=== PATIENT | female | born 1970 | race Two or more races ===

== ENCOUNTER 2025-02-25 09:15 | Day surgery (SDC) | payer MEDICARE, MEDICAID, SELFPAY ==
--- NOTE | 2025-02-24 11:05 | EKG_ITS ---
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
[2025-02-24 11:15] VITALS: BMI 31.5
[2025-02-24 13:16] LABS: Basophils # (Auto) 0.1 Thou/mm3 (0.0-0.2); Basophils % (Auto) 1 % (0-2.5); Eosinophils # (Auto) 0.3 Thou/mm3 (0.0-0.5); Eosinophils % (Auto) 5 % (0-10); Hematocrit 35.7 % (36.0-46.0); Hemoglobin 12.0 g/dL (12.0-16.0); Immature Granulocytes Auto 0.01 Thou/mm3 (0.00-0.00); Lymphocytes # (Auto) 2.4 Thou/mm3 (1.0-4.8); Lymphocytes % (Auto) 35 % (10-50); Mean Corpuscular HGB Conc 33.6 g/dl (31.0-37.0); Mean Corpuscular Hemoglobin 28.6 pg (25.0-35.0); Mean Corpuscular Volume 85 fL (80-100); Monocytes # (Auto) 0.5 Thou/mm3 (0.0-0.8); Monocytes % (Auto) 7 % (0-12); Neutrophils # (Auto) 3.6 Thou/mm3 (1.8-7.7); Neutrophils % (Auto) 52 % (37-80); Nucleated Red Blood Cell # 0.00 Thou/mm3 (0.00-0.00); Nucleated Red Blood Cell % 0 /100 WBC (0); Platelet Count 323 Thou/mm3 (140-440); RDW Standard Deviation 43.7 fL (36.4-46.3); Red Blood Count 4.20 Miln/mm3 (4.00-5.20); White Blood Count 6.9 Thou/mm3 (3.6-11.0)
[2025-02-24 13:21] LABS: INR 0.9 (0.9-1.3); Partial Thromboplastin Time 24.8 Seconds (22.0-36.0); Prothrombin Time 10.4 Seconds (9.0-12.2)
[2025-02-24 13:37] LABS: Alanine Aminotransferase 9 U/L (10-49); Albumin, Serum 4.5 gm/dL (3.5-5.0); Albumin/Globulin Ratio 1.8 (1.2-2.2); Alkaline Phosphatase 71 U/L (46-116); Anion Gap 7 (7-16); Aspartate Amino Transferase 14 U/L (0-34); BUN/Creatinine Ratio 14 Ratio (12-20); Bilirubin,Total 0.4 mg/dL (0.3-1.2); Blood Urea Nitrogen 13 mg/dL (9-23); Calcium 10.0 mg/dL (8.3-10.6); Calcium (Corrected) 10.0 mg/dL (8.5-10.1); Carbon Dioxide 26.7 mMol/L (20.0-31.0); Chloride 110 mMol/L (98-107); Creatinine (Component) 0.9 mg/dL (0.6-1.3); Estimated Creatinine Clearance 80.9 mL/min (>60); Globulin 2.5 gm/dL (2.3-3.5); Glucose 88 mg/dL (74-106); Osmolality,Calculated 285 (275-295); Potassium 4.6 mMol/L (3.4-5.1); Sodium 144 mMol/L (136-145); Total Protein 7.0 gm/dL (5.7-8.2); eGFR > 60 See Note
--- NOTE | 2025-02-24 14:20 | ESHP_ITS ---
RE: JL SINGH : 1970 DATE OF ADMISSION: 02/25/2025 HISTORY OF PRESENTING COMPLAINT: The patient has pain, swelling, clicking, and locking of the right knee joint. Pain is going on for a long period of time. It is interfering with her routine daily activities and activities of daily living. Conservative treatment did not help her. It is affecting her sleep and is unable to walk more than 1 or 2 block. The MRI scan was obtained, which revealed torn meniscus. PAST MEDICAL HISTORY: No history of diabetes mellitus, high blood pressure, asthma, seizure, chest pain, myocardial infarction, or bleeding disorder. PAST SURGICAL HISTORY: Nil. DRUG HISTORY: The patient is taking; 1. Gabapentin. 2. Baclofen. 3. Sometimes she takes Lidocaine. 4. Besides that the patient takes lisinopril for high blood pressure. ALLERGIES: NIL KNOWN. FAMILY HISTORY AND SOCIAL HISTORY: The patient denies smoking or drinking. PHYSICAL EXAMINATION: GENERAL: Normal built lady. VITAL SIGNS: Pulse 66 per minute. Blood pressure is 128/82. Her BMI is 30.40. NECK: Soft. Supple. No mass felt. Trachea is centrally placed. CARDIOVASCULAR SYSTEM: First and second heart sounds normal. No murmurs heard. RESPIRATORY SYSTEM: Bilateral vesicular breath sounds. CHEST: Clear. ABDOMEN: Soft. No masses felt. Bowel sounds present. BREASTS: Not indicated in this case. RECTAL: The patient is advised to see the family physician for rectal examination. EXTREMITIES: Right knee examination revealed mild swelling. There is 2+ tenderness along the joint line. Active range of motion 0 to 120 degrees of flexion. Patellofemoral crepitus present. Anthony's test is positive. Drawer test and Grabiel tests are negative. The patient walks with limp. 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 There is synovitis with increased joint fluid. ASSESSMENT AND PLAN: Since the patient has meniscal tear and the patient is symptomatic, therefore, right knee arthroscopy was discussed and advised. Detailed discussion took place. Risks with anesthesia were explained and that includes, but not limited to reaction to anesthetic agents, cardiac arrest or rarely it might be fatal. Risks of operation includes infection and if that happens, the patient may need further surgical procedure. Other risks include delayed healing, wound dehiscence, etc. No guarantee is given regarding the outcome of the procedure and/or relief of symptoms. Detailed discussion took place. Indeed, if one finds grade 3 and/or grade 4 chondromalacia, there is a possibility that the patient may need another knee replacement if the pain persists and pain is significant. All lab work is done. The patient is cleared for surgical procedure as well. Surgery is booked for 02/25/2025. DT: 13:46:22 TT: 14:18:00 Ref: [id number] - TID: [id number]
[2025-02-25] VITALS (7 sets, daily range): BP systolic 92–127; BP diastolic 58–82; PULSE 61–93; RESP 12–20; TEMP 36.1; O2SAT 97–100; BMI 31.1
[2025-02-25] MEDS: RINGERS LACTATED 1000 ML 1,000 ML 20 ML IV (10:00)
--- NOTE | 2025-02-25 12:34 | SUR.PHASEI ---
Pt. arrived to recovery via gurney, eyes closed, responds to verbal commands, VSS, lung sounds clear, equal expansion kalia., pt. receiving 6 liters 02 via oxymask, dressing to right knee adaptic soaked in betadine, fluffs, abd. pad, bias roll and silk tape, no active bleeding or redness noted, pedal pulses present kalia., cap refill to great toe on right foot <3 seconds, report received from Alicia VELASQUEZ and Iftikhar ROUSE.
--- NOTE | 2025-02-25 12:43 | PD.SUROPNT ---
Date of Procedure 02/25/25 Pre Op Diagnosis 1. 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 Partial medial meniscectomy 2 partial lateral meniscectomy 3 chondroplasty 4. Partial synovectomy including excision plica Findings Refer dictation Procedure Description The patient was given general endotracheal anesthesia. Once satisfactory anesthesia was achieved, tourniquet was placed on right upper thigh. Following that the part was thoroughly prepped and draped. After using Esmarch the tourniquet pressure was raised to 350 mmHg. A skin incision was made proximal to lateral tibial plateau and arthroscope was introduced in the usual fashion. Another a skin incision was made in suprapatellar pouch area and outlet was established. The findings were noted as below. In suprapatellar pouch area significant synovial tissue inflammation was present. Medial plica was present as well. 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 The anterior femoral condyle showed grade 4 chondromalacia. Soft tissue impingement was present. The patellar tracking was checked and found to be good. The medial compartment showed grade 3 chondromalacia for medial tibial plateau and medial femoral condyle. The medial meniscus showed degeneration and tear of the anterior horn. Another skin incision was made proximal to medial tibial plateau and a probe was introduced and findings were confirmed. The anterior cruciate ligament was intact. The anterior drawer test was performed and found to be good. The lateral compartment showed grade III chondromalacia lateral femoral condyle and tibial plateau. Lateral meniscus showed degeneration of the body and anterior horn. A shaver was introduced and shaving of the anterior horn of medial meniscus was performed. Soft tissue impingement was shaved off. Chondroplasty of the medial femoral condyle and medial tibial plateau was performed. The shaving of the body and anterior horn of lateral meniscus was done. Chondroplasty of the lateral tibial plateau and femoral condyle was done The chondroplasty of the patella and and anterior femoral condyle was performed. The soft tissue impingement was shaved off. A partial synovectomy including excision of plica was performed. Copious amount of irrigation was used to irrigate the knee joint. All the debris were removed. 3-0 Prolene was used to close the wound. About 20 mL of quarter percent Marcaine along with 10 mg of Duramorph was injected. Patient tolerated procedure well. Estimated blood loss was about 5 mL. Prognosis in this case is in the patella, anterior femoral condyle and also in the lateral and medial compartment there is a possibility patient may continue having bit guarded. Because of significant chondromalacia short and or long-term pain. If the pain is severe patient may be a candidate for knee replacement patient is fully aware of that. Patient was taken to the recovery room in good condition. Anesthesia GETA Pathology / specimen None Estimated Blood Loss 2 Surgeon Earnest Townsend MD Surgical Staff Operation Date: 02/25/25 11:15 Case Staff [employer] TE[employer]ICAL OFFICER: Loi Larry
[2025-02-25] MEDS: fentaNYL CIT INJ 50 mCg/ML AMP 2ML 25 MCG IVP ×2 (13:02→13:17)
--- NOTE | 2025-02-25 13:40 | SUR.PHASEII ---
pt awake and alert, breathing unlabored on room air. v/s stable. pt dressing to right lower extremity cdi. pt able to transfer to wheelchair. d/c instructions given with friend Parvin Sams in room, all questions answered. pt d/c via wheelchair with all belongings.
== END 2025-02-25 13:40 | disposition home or self-care (01) ==
PROVIDERS: Anesthesiology; PCP Family Medicine; Referring Provider Orthopaedic Surgery; Visit Provider Orthopaedic Surgery
PROC: (CPT 29870; principal; 2025-02-25 11:00)
DX: S83.241A Other tear of medial meniscus, current injury, right knee, initial encounter (principal); S83.289A Other tear of lateral meniscus, current injury, unspecified knee, initial encounter; X58.XXXA Exposure to other specified factors, initial encounter; M17.11 Unilateral primary osteoarthritis, right knee; M67.51 Plica syndrome, right knee; M22.41 Chondromalacia patellae, right knee; M26.81 Anterior soft tissue impingement; Z01.810 Encounter for preprocedural cardiovascular examination
CPT/HCPCS: 29880; 36415; 80053; 85025; 85610; 85730; 93005; A4217; A4649; J0690; J1100; J1885; J2405; J2704; J3010; J7120